=== PATIENT | male | born 1995 | race Caucasian/White ===

== ENCOUNTER 2016-11-21 08:51 | Emergency (ER) | payer OTHER ==
[~2016-11-21] VITALS: Ht 170.2 cm; Wt 58.9 kg
[~2016-11-21 08:51] MED LIST: FLOXIN OTIC SOLN5 ML RIGHT EAR
[2016-11-21 09:22] LABS: HEMATOCRIT 46.7 % (38.0-50.0); MCH 31.2 PG (29.0-34.0); MCHC 35.8 G/DL (30.0-36.0); MCV 87.1 FL (86-99); MEAN PLAT.VOLUME 11.5 uM^3 (9.0-12.4); PLATELET COUNT 293 K/uL (156-360); RBC DIS.WIDTH-CV 12.2 % (11.8-14.6); RBC DIS.WIDTH-SD 38.6 % (39-53); RED BLOOD COUNT 5.36 M/uL (4.00-5.50)
[2016-11-21 10:06] LABS: ALKALINE PHOSPHATASE 76 IU/L (3-129); ANION GAP 9 MEQ/L (2-14); CHLORIDE 105 MEQ/L (99-109); GFR ESTIMATE (CALCULATED) > 59 mL/min/; GLUCOSE 102 mg/dL (70-99); POTASSIUM 4.1 MEQ/L (3.7-5.4); SAMPLE HEMOLYSIS CHECK 0; SAMPLE ICTERIC CHECK 0; SAMPLE LIPEMIA CHECK 0; SODIUM 141 MEQ/L (136-147); TOTAL BILIRUBIN 0.8 MG/DL (0.0-1.0); UREA NITROGEN (BUN) 11 mg/dL (9-23)
[2016-11-21 10:56] LABS: BILIRUBIN NEGATIVE; BLOOD NEGATIVE; COLOR DK YELLOW ((YELLOW)); GLUCOSE (STRIP) NEGATIVE; KETONES NEGATIVE; LEUKOCYTES NEGATIVE; NITRITE NEGATIVE; PROTEIN (STRIP) 30; SPECIFIC GRAVITY 1.033 (1.000-1.030); UROBILINOGEN 0.2 MG/DL (0.2-1.0)
[2016-11-21 10:59] LABS: ADD MIUA? NO; UCUL ADDED? NO
[2016-11-21] MEDS ORDERED: ZOFRAN ODT4 MG PO (11:26)
[2016-11-21] MEDS ORDERED: PERCOCET 5/31 TABLET PO (11:26)
[2016-11-21] MEDS ORDERED: FLAGYL500 MG PO (11:26)
[2016-11-21] MEDS ORDERED: CIPRO500 MG PO (11:26)
[2016-11-21 12:51] VITALS: BP 121/87
== END 2016-11-21 12:53 | disposition home or self-care (01) ==
LOC: EME 08:51
DX: K52.9 Noninfective gastroenteritis and colitis, unspecified (principal)
CPT/HCPCS: 74020; 74177; 80053; 81003; 85027; 99281; 99284; J1885; J7120